=== PATIENT | male | born 1940 | race Caucasian/White ===

== ENCOUNTER → 2017-11-03 | Day surgery (SDC) | payer MEDICARE ==
--- NOTE | 2017-11-02 10:50 | Diagnostic Imaging Report ---
PROCEDURE: X-RAY CHEST, TWO VIEWS COMPARISON: None. INDICATIONS: PRE-OP KNEE SCOPE FINDINGS: Lungs are well-inflated. No focal airspace consolidation, pleural effusion, or pneumothorax. Cardiomediastinal contour and pulmonary vasculature are within normal limits. No acute osseous abnormality. Multilevel degenerative disc changes of the thoracic spine. CONCLUSION: No acute cardiopulmonary abnormality. Dictated by: Mike Faith M.D. on 11/02/2017 at 10:58 Electronically approved by: Mike Faith M.D. on 11/02/2017 at 10:58
[2017-11-02 11:12] LABS: BASOPHILS # (AUTO) 0.1 (0.0-0.1); BASOPHILS % 0.9 % (0.0-1.0); EOSINOPHILS # (AUTO) 0.1 (0.0-0.4); EOSINOPHILS % 2.4 % (0.0-6.0); HEMATOCRIT 41.3 % (38.2-49.6); HEMOGLOBIN 13.5 g/dL (14.0-18.0); LYMPHOCYTES # (AUTO) 1.7 (1.0-3.2); LYMPHOCYTES % 32.5 % (18.0-39.1); MEAN CORPUSCULAR HEMOGLOBIN 30.7 pg (28-32); MEAN CORPUSCULAR HGB CONC 32.7 g/dL (31-35); MEAN CORPUSCULAR VOLUME 93.9 fL (81-99); MONOCYTES # (AUTO) 0.4 (0.2-0.8); MONOCYTES % 6.6 % (4.4-11.3); NEUTROPHILS # (AUTO) 3.1 (2.1-6.9); NEUTROPHILS % 57.4 % (38.7-80.0); PLATELET COUNT 199 x10e3/uL (140-360); RED CELL DISTRIBUTION WIDTH 13.2 % (11.7-14.4)
[2017-11-02 11:13] LABS: INR 0.87; PROTHROMBIN TIME 12.3 seconds (11.9-14.5)
[2017-11-02 11:14] LABS: PARTIAL THROMBOPLASTIN TIME 33.5 seconds (23.8-35.5)
[~2017-11-03] MED LIST: ASCORBIC ACID500 M1 PO; BUPIVACAINE HCL 0.5% INJ 30 ML VIAL INJ ONE; CLINDAMYCIN PHOS 900MG/ D5W 50 50 ML IV ONE; DEXAMETHASONE SOD PHOS INJ 4 MG/ML VIAL ONE; FENTANYL CITRATE/PF 100MCG/2 ML INJ ONE; FISH OIL 1,0001 EAC2 PO; KETOROLAC TROMETHAMINE 30 MG/ML VIAL ONE; LIDOCAINE HCL 2% LOCAL INJ 5 ML SDV VIAL INJ ONE; LISINOPRIL10 MG PO; MULTIVITAMINS1 EAC7 PO; ONDANSETRON HCL INJ 2 MG/ML VIAL ONE; PROPOFOL IV EMULSION 10 MG/ML 20 ML VIAL ONE; SEVOFLURANE INHAL SOLN 250 ML PEN BTL ONE; SIMVASTATIN20 MG PO; VITAMIN C500 M1 PO; WARFARIN SODIUM3 MG PO
--- NOTE | 2017-11-04 16:23 | Operative Report ---
DATE OF PROCEDURE: November 03, 2017 PREOPERATIVE DIAGNOSES 1. Left knee medial meniscus tear. 2. Left knee degenerative joint disease of the knee. POSTOPERATIVE DIAGNOSES 1. Left knee medial meniscus tear. 2. Left knee lateral meniscus tear. 3. Left knee degenerative joint disease of the knee. OPERATIONS/PROCEDURES PERFORMED 1. Patient underwent a left knee examination under anesthesia. 2. Left knee arthroscopy. 3. Left knee partial medial meniscectomy. 4. Left knee partial lateral meniscectomy. 5. Left knee chondroplasty of the patella, trochlea, medial femoral condyle, medial tibial plateau, lateral femoral condyle, and lateral tibial plateau. [employer] OPERATOR: Rbeekah Laws PA-C ANESTHESIA: General endotracheal intubation anesthesia. IV FLUIDS: Per the anesthesia record. DESCRIPTION OF PROCEDURE: Mr. Ellison was taken to the operating room and placed in the supine position on the operating table. Following the induction of general anesthesia, as well as endotracheal intubation, the patient's left lower extremity was examined under anesthesia. He was found to have a mild effusion within the knee joint but otherwise ligamentously stable knee. The patient's lower extremity was prepped and draped in the standard surgical fashion. A 2-portal technique was used to provide this patient arthroscopic evaluation of the knee joint. Examination of the suprapatellar pouch, medial and lateral gutters found no evidence of loose bodies. There was however evidence of chondromalacia of the patellar and trochlear surfaces. The scope was advanced to the medial compartment. Examination of the medial compartment demonstrated a torn medial meniscus. There was also chondromalacia of the articulating surfaces. A combination of biting forceps and a motorized shaver was used to resect the torn portion of the meniscus. Chondroplasties of the medial femoral condyle and medial tibial plateau were performed at this time. The scope was then advanced to the intracondylar notch. The anterior cruciate ligament was identified and found to be intact. The scope was advanced to the lateral compartment. There was also chondromalacia of the articulating surfaces. There was also fraying and mild tearing of the lateral meniscus. A combination of biting forceps and motorized shaver was used to resect the torn portion of meniscus. Chondroplasties of the lateral femoral condyle and lateral tibial plateau performed at this time. Scope was then advanced into the suprapatellar pouch. Chondroplasties of the patella and trochlea performed. The knee was deflated of its sterile normal saline. Each of the portal sites were closed using 4-0 nylon suture. The portal sites, as well as the knee itself, were then injected with 0.5% Marcaine with epinephrine. Sterile dressings were applied. The patient was awakened and taken to the postanesthesia care unit in stable condition. Job#: [id number]
== END | disposition home or self-care (01) ==
LOC: OR 08:23
PROVIDERS: ATTEND Specialist
DX: S83.242A Other tear of medial meniscus, current injury, left knee, initial encounter (principal); S83.282A Other tear of lateral meniscus, current injury, left knee, initial encounter; M22.42 Chondromalacia patellae, left knee; M70.42 Prepatellar bursitis, left knee; M17.12 Unilateral primary osteoarthritis, left knee; G47.33 Obstructive sleep apnea (adult) (pediatric); I10 Essential (primary) hypertension; X58.XXXA Exposure to other specified factors, initial encounter; Z01.810 Encounter for preprocedural cardiovascular examination; Z01.812 Encounter for preprocedural laboratory examination; Z01.818 Encounter for other preprocedural examination; Z79.01 Long term (current) use of anticoagulants; Z79.82 Long term (current) use of aspirin; Z68.36 Body mass index [BMI] 36.0-36.9, adult; Z96.651 Presence of right artificial knee joint; Z86.718 Personal history of other venous thrombosis and embolism
CPT/HCPCS: 29880; 36415; 71020; 85025; 85610; 85730; 93005; J1100; J1885; J2001; J2405

== ENCOUNTER → 2017-11-19 | Outpatient (CLI) | payer MEDICARE ==
[~2017-11-19] MED LIST changes: -BUPIVACAINE HCL 0.5% INJ 30 ML VIAL INJ ONE; -CLINDAMYCIN PHOS 900MG/ D5W 50 50 ML IV ONE; -DEXAMETHASONE SOD PHOS INJ 4 MG/ML VIAL ONE; -FENTANYL CITRATE/PF 100MCG/2 ML INJ ONE; -KETOROLAC TROMETHAMINE 30 MG/ML VIAL ONE; -LIDOCAINE HCL 2% LOCAL INJ 5 ML SDV VIAL INJ ONE; -ONDANSETRON HCL INJ 2 MG/ML VIAL ONE; -PROPOFOL IV EMULSION 10 MG/ML 20 ML VIAL ONE; -SEVOFLURANE INHAL SOLN 250 ML PEN BTL ONE
== END ==
LOC: RAD 12:03
PROVIDERS: ATTEND Specialist
DX: R22.42 Localized swelling, mass and lump, left lower limb (principal)
CPT/HCPCS: 93971